=== PATIENT | male | born 1995 | race Caucasian/White ===

== ENCOUNTER 2020-03-24 14:29 | Outpatient (CLI) | payer BC, SELFPAY ==
--- NOTE | ~2020-03-24 | XR_ITS ---
XR knee RT min 4V 03/24/2020 15:10 Indication: Right knee pain Procedure: 4 views right knee Comparison: No prior studies for comparison. Findings: No fracture, subluxation or dislocation. No significant joint space narrowing. No joint eff usion. Impression: 1: No significant bone or joint abnormality. Reviewed, dictated and finalized at location A. [employer] Impression: 1: No significant bone or joint abnormality.
== END 2020-03-24 14:30 | disposition home or self-care (01) ==
LOC: ANHIMG 14:41
PROVIDERS: PCP Internal Medicine; Visit Provider Internal Medicine
DX: M22.2X1 Patellofemoral disorders, right knee (principal); M25.561 Pain in right knee
CPT/HCPCS: 73564